=== PATIENT | male | born 1950 | race Caucasian/White ===

== ENCOUNTER 2017-05-28 06:38 | Day surgery (SDC) | payer MEDICARE ==
[~2017-05-28] VITALS: Ht 170.2 cm; Wt 129.1 kg
[2017-05-28] MEDS ORDERED: IOHEXOL 350 MG/ML 100 ML BTL (for Cath Lab) OTHER ONE (06:39)
[2017-05-28 07:23] VITALS: BP 144/77; PULSE 86; RESP 18; TEMP 97.7; O2SAT 96
[2017-05-28 07:28] LABS: AUTOMATED NEUTROPHIL # 4.1 TH/MM3 (1.8-7.7); BASOPHIL # 0.1 TH/MM3 (0-0.2); BASOPHIL % 1.8 % (0.0-2.0); EOSINOPHIL # 0.2 TH/MM3 (0-0.4); EOSINOPHIL % 3.4 % (0.0-4.0); HEMATOCRIT 42.6 % (39.0-51.0); HEMOGLOBIN 14.4 GM/DL (13.0-17.0); LYMPH % 17.6 % (9.0-44.0); LYMPHOCYTE # 1.1 TH/MM3 (1.0-4.8); MEAN CELL VOLUME 87.7 FL (80.0-100.0); MEAN CORPUSCULAR HEMOGLOBIN 29.6 PG (27.0-34.0); MEAN CORPUSCULAR HGB CONC 33.7 % (32.0-36.0); MEAN PLATELET VOLUME 8.9 FL (7.0-11.0); MONOCYTE # 0.6 TH/MM3 (0-0.9); NEUT % 67.2 % (16.0-70.0); PLATELET COUNT 159 TH/MM3 (150-450); RED BLOOD COUNT 4.86 MIL/MM3 (4.50-5.90); RED CELL DISTRIBUTION WIDTH 15.4 % (11.6-17.2)
[2017-05-28] MEDS ORDERED: ATOR40TA16 PO (07:38)
[2017-05-28] MEDS ORDERED: ACET-822 PO (07:38)
[2017-05-28] MEDS ORDERED: ALFU10TA2 PO (07:38)
[2017-05-28] MEDS ORDERED: ECASA81 PO (07:38)
[2017-05-28] MEDS ORDERED: SITA1TAB2 PO (07:38)
[2017-05-28] MEDS ORDERED: ERGO2000 PO (07:38)
[2017-05-28] MEDS ORDERED: PIOG30TA4 PO (07:38)
[2017-05-28] MEDS ORDERED: METO25TA3 PO (07:38)
[2017-05-28] MEDS ORDERED: MAGN400T2 PO (07:38)
[2017-05-28] MEDS ORDERED: LANTUS2P SQ (07:38)
[2017-05-28] MEDS ORDERED: CYCL10TA PO (07:38)
[2017-05-28 07:39] LABS: PROTHROMBIN TIME - PATIENT 10.1 SEC (9.8-11.6)
[2017-05-28 07:52] LABS: BICARBONATE 23.2 MEQ/L (21.0-32.0); CALCIUM 9.2 MG/DL (8.5-10.1); CREATININE 1.8 MG/DL (0.60-1.30)
[2017-05-28] MEDS ORDERED: MIDAZOLAM HCL 2 MG/2 ML VIAL ONE (08:35)
[2017-05-28] MEDS ORDERED: HEPARIN-NS/PF FLUSH BAG 2,000 ML IV FLUSH ONE (08:35)
[2017-05-28] MEDS ORDERED: HEPARIN SODIUM - IV 10,000 UNITS/10 ML VIAL ONE (08:36)
[2017-05-28] MEDS ORDERED: LIDOCAINE HCL 1% PF 30 ML VIAL ONE (08:36)
[2017-05-28] MEDS ORDERED: VERAPAMIL HCL 5 MG/2 ML VIAL ONE (08:36)
[2017-05-28] MEDS ORDERED: NITROGLYCERIN INJ 5 ML ONE (08:36)
--- NOTE | 2017-05-28 10:22 | CATHPROC ---
[facility] HIS Report Study Information Study Number Admission Scheduled Start Study Start [id number] May 28 2017 6:38AM 05/28/2017 May 28 2017 8:23AM [place] [facility] Cardiac Catheterization Admit Source Facility Department Other [facility] - Lead Electrical Engineer Physician and Clinical Staff Initial Marek Wright Sheet Metal Production Worker Ricky Saldaña RN Other cathlab, cathlab Recorder Thien Tapia RCIS(BS) Scrub Stephanie Nathan RT(R) Procedures Performed Procedure Location (Site) Vessel Name Angiogram LV LV Ventricle Coronary Angiograms LCA Left Coronary Coronary Angiograms RCA Right Coronary Coronary Angiograms MEYERS-LAD Left Coronary L Heart Cath Wire insertion Radial (left) Radial Art. Equipment Time Geological Specialist Description Size Mfg Part Number Used/Scraped TRANSDUCER, SJ [id number] 08:26 DE LA ROSA FRIEDMAN * Used W/STOCKCOCK *[id number] *[id number] [id number] *[id number] 10:01 MALLINCKRODT SYRINGE, ANGIOMAT 150ML 150ML *[id number] Used 2SUB [id number] 10:01 MALLINCKRODT SYRINGE, ANGIOMAT 150ML 150ML *[id number] Used 2SUB [id number] 08:26 [employer]gate PACK, CCL CUSTOM * Used *[id number] 08:26 [employer]gate SUPPORT, ARTERIAL ADULT 79877 *[id number] Used [id number] 09:31 MEDTRONIC AL 1 DXTERITY CATHETER FR 5 Used *[id number] 09:43 MEDTRONIC AR MOD DXTERITY CATHETER FR 5 [id number] Used [id number] 08:52 MEDTRONIC JR 4.0 DXTERITY CATHETER FR 5 Used *[id number] BAND, RADIAL COMPRESSION TR [id number] 10:08 K94 [employer] MEDICAL 29CM Used LARGE 29 *[id number] 08:26 K94 [employer] MEDICAL WIRE, EXCHANGE 260CM 3MMJ 260CM Used *[id number] 08:26 NAMIC MANIFOLD, 4 PORT * Used *[id number] 09:51 NAMIC TUBING, HIGH PRESSURE 20" 20" Used *[id number] 08:26 [employer]COMED OMNIPAQUE, 350 MG, 150ML 150ML [id number] Used 09:50 [employer]COMED OMNIPAQUE, 350 MG, 50ML 50ML [id number] Used [id number] 08:26 [facility] BLANKET,WARM AIR CCL * Used *[id number] SHEATH, FR6 TRANSRADIAL RM*[id number] 08:26 [employer] Chitosan FR 6 Used SLENDER 10CM *[id number] Equipment Model, Serial, Lot Number and Expiration Data Description Model Number Serial Number Lot Number Expiration Date AL 1 DXTERITY CATHETER [id number] 05-10-2019 AR MOD DXTERITY CATHETER [id number] 06-21-2019 JR 4.0 DXTERITY CATHETER [id number] 12-02-2019 History: Current Medications Medication Dosage/Unit Route Frequency Last Date/Time Taken ASA Statins (any) 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 History: Allergies Allergy Reaction No Known Allergies History: Risk Factors Family History of Hypertension Dyslipidemia Previous [place] Previous Heart Failure Premature CAD Yes Yes Yes Yes No Prior Valve Prior PCI Prior CABG Prior CABGDate Surgery No No Yes 08/05/2011 Cerebrovascular Peripheral Artery Chronic Lung On Dialysis Diabetes Diabetes Therapy Disease Disease Disease No No No No Yes Insulin History: CV Disease Selection Items Known CAD W[place] History: Stress Tests Stress or Imaging Studies Performed Yes Standard Exercise Stress Test No Stress Echo No Stress Test SPECT No Stress Test CMR Stress Test CMR Result Stress Test CMR Ischemia Risk/Extent Yes Positive Intermediate Cardiac CTA Coronary Calcium Score No No History: W[place]/CV Data Previous CABG Date 08/05/2011 History: Other Current Smoker Method Quit Packs a Day Years Used Pack Years No Cigarettes 30 Years Ago 3 15 45 Labs Hgb (g/dl) Hct (%) WBC (l/cumm) Platelets (thousands) 11.60-17.00 35.00-51.00 4.00-11.00 150.00-450.00 14.4 42.6 6 159 Glucose (mg/dl) BUN (mg/dl) Creatinine (mg/dl) BUN:Creatinine (1:x) 74.00-106.00 7.00-18.00 0.50-1.30 10.00-20.00 196 32 1.8 17.8 Na (meq/l) K (meq/l) Cl (meq/l) CO2 (mmol/L) Ca (mg/dl) 136.00-145.00 3.50-5.10 98.00-107.00 21.00-32.00 8.50-10.10 136 4 103 23.2 9.2 PT (sec) PTT (sec) INR (PTT:PT) 9.80-11.60 24.30-30.10 0.90-1.10 10.1 23.6 1 Medication Medication Total Dose (Bolus/Oral) Medication Total Dosage/Unit 1% XYLOCAINE 4 mL FENTANYL 25 mcg RADIAL COCKTAIL 5 mL (Bolus) VERSED 0.5 mg Medications (Bolus/Oral) Medication Time Given Dosage/Unit Administered By Reason VERSED 05/28/2017 8:58:00 AM 0.5 mg Ricky Saldaña 0.5 mg VERSED given in lab by Ricky Saldaña RN in Left Hand via Peripheral IV. Ordered by Blank Wilson FENTANYL 05/28/2017 8:59:05 AM 25 mcg Ricky Saldaña 25 mcg FENTANYL given in lab by Ricky Saldaña RN in Left Hand via Peripheral IV. Ordered by Marek Wilson. 1% XYLOCAINE 05/28/2017 9:01:01 AM 2 mL Marek Wilson 2 mL 1% XYLOCAINE given in lab by Marek Wilson in Left Radial via Subcutaneous. 1% XYLOCAINE 05/28/2017 9:10:44 AM 2 mL Marek Wilson 2 mL 1% XYLOCAINE given in lab by Marek Wilson in Left Radial via Subcutaneous. Ntg 200mcg Verapamil 2.5mg Heparin RADIAL COCKTAIL 05/28/2017 9:12:59 AM 5 mL (Bolus) Marek Wilson 3000U 5 mL (Bolus) RADIAL COCKTAIL given in lab by Marek Wilson in Left Radial via Radial. Using [So lution Name]. Reason: Ntg 200mcg Verapamil 2.5mg Heparin 5000U. Medication (Drip) Medication Time Given Dosage/Unit Concentration/Unit Diluent (ml) Solution IV Solutions 05/28/2017 8:25:40 AM 0 mL (IV) 500 NaCl .9 IV Solutions given in lab by Ricky Saldaña RN in Left Hand via Peripheral IV. Pump/Drip Flow = 20 ml/ hr using NaCl .9. Ordered by Marek Wilson. Initial Case Assessment Cardiovascular HR Rhythm NIBP Chest Pain 76 nsr 153/76 0 Edema Present Skin color Skin None Normal Warm Dry Circulatory - Right Pulses Dorsalis Pedis Femoral 3 3 Scale (0,1,2,3,4,d) Circulatory - Left Pulses Dorsalis Pedis Femoral 3 3 Scale (0,1,2,3,4,d) Neurological State Oriented to time-place- Alert Moves all extremities person Respiration - General Respiration Rate SpO2 (%) (B/min) 15 97 Final Case Assessment Cardiovascular HR Rhythm NIBP Chest Pain 77 nsr 145/87 0 Edema Present Skin color Skin None Normal Warm Dry Circulatory - Right Pulses Dorsalis Pedis Femoral 3 3 Scale (0,1,2,3,4,d) Circulatory - Left Pulses Dorsalis Pedis Femoral 3 3 Scale (0,1,2,3,4,d) Neurological State Oriented to time-place- Alert Moves all extremities person Respiration - General Respiration Rate SpO2 (%) (B/min) 15 97 Chronological Log Time Study Chronological Log 8:23:16 Patient arrived via Bed. 8:23:17 Patient Name, D.O.B, / Armband Verified By R.N. 8:25:21 Consent signed by the physician and the patient and verified by the Lead Electrical Engineer staff. 8:25:23 Pre-op and post- op instructions given; patient acknowledges understanding of instructions. 8:25:27 Patient has been NPO for More than 6Hrs. 8:25:29 Allens test performed on the left radial and ulnar artery. 8:25:32 Patient has been NPO for More than 6Hrs. 8:25:33 Skin Breakdown- 8:25:34 Patient Warmer Placed on the Table. 8:25:35 Stas Prominences Protected 8:25:39 A # 20 IV was noted in the Hand (left). Grade = 0 IV Solutions given in lab by Ricky Saldaña, RN in Left Hand via Peripheral IV. Pump/Drip Flow = 20 ml/hr using NaCl .9. 8:25:40 Ordered by Marek Wilson 8:25:41 History and physical on the chart or being dictated. Vitals capture started with the following parameters, Patient=Adult, Interval=5 min, Initial Pr klbxit=657 mmHg, 8:28:00 Deflation Rate=5 mmHg, Cuff placed on Left Arm 8:28:40 HR=76 bpm, LTAM=721/76 mmhg, SpO2=97 %, Resp=15 B/min, Pain=0, Sydney=10, Wheeler=2 Assessment: Initial Case, HR=76 BPM, Rhythm=nsr, ISSL=710/76 mmhg, Chest Pain=0, Edema=None, Col or=Normal, Skin = Warm, Dry Right Pulses: Tae Ped=3, Femoral=3 8:31:01 Left Pulses: Tae Ped=3, Femoral=3 Neurological: State=Alert, Ox3, GUTIERREZ Respiration: Resp=15 B/min, SpO2=97 % 8:33:37 HR=83 bpm, JJUK=104/93 mmhg, SpO2=95.0 %, Resp=12 B/min, Pain=0, Sydney=10, Wheeler=2 8:38:38 HR=73 bpm, HYLT=362/82 mmhg, SpO2=95.0 %, Resp=16 B/min, Pain=0, Sydney=10, Wheeler=2 8:40:32 Reference ECG taken 8:42:00 MD arrived. 8:43:35 HR=78 bpm, ZEMH=723/84 mmhg, SpO2=92.0 %, Resp=8 B/min 8:48:39 HR=74 bpm, SZPP=881/77 mmhg, SpO2=93.0 %, Resp=12 B/min, Pain=0, Sydney=10, Wheeler=2 8:52:11 Pressure channel 1 zeroed. 8:53:38 HR=74 bpm, IOSD=571/83 mmhg, SpO2=96 %, Resp=11 B/min, Pain=0, Sydney=10, Wheeler=2 8:54:20 Contrast Scanned 8:54:20 Immediate Presedation assesment performed by physician. 8:58:00 0.5 mg VERSED given in lab by Ricky Saldaña RN in Left Hand via Peripheral IV. Ordered by Marek Santiago 8:58:35 HR=72 bpm, MGRF=021/89 mmhg, SpO2=94.0 %, Resp=10 B/min, Pain=0, Sydney=10, Wheeler=2 8:59:05 25 mcg FENTANYL given in lab by Ricky Saldaña RN in Left Hand via Peripheral IV. Ordered by Marek Wilson Time Out. Correct patient, correct procedure, correct physician, power injector not loaded with contrast with surgical 8:59:10 team present. Time Out Concurred by MD and individual staff in procedure. 9:00:27 Case Start 9:00:28 Verbal Stimulation=2 Physical Stimulation=2 Airway=2 Respiration=2 TOTAL=8. (0=absent, 1=bhatia ited, 2=present) 9:01:01 2 mL 1% XYLOCAINE given in lab by Marek Wilson in Left Radial via Subcutaneous. 9:03:40 HR=71 bpm, FONG=763/86 mmhg, SpO2=91.0 %, Resp=11 B/min, Pain=0, Sydney=10, Wheeler=2 9:08:39 GTMR=816/83 mmhg, SpO2=91.0 % 9:10:44 2 mL 1% XYLOCAINE given in lab by Marek Wilson in Left Radial via Subcutaneous. 9:11:52 Access site was Radial Artery. Left radial access obtained with ultrasound guidance. A SHEATH, FR6 TRANSRADIAL SLENDER 10CM FR 6 was advanced into the Radial (left) using the Percut aneous 9:12:33 technique. 5 mL (Bolus) RADIAL COCKTAIL given in lab by Marek Wilson in Left Radial via Radial. Benja jc [Solution Name]. 9:12:59 Reason: Ntg 200mcg Verapamil 2.5mg Heparin 5000U. 9:14:02 HR=94 bpm, BERZ=584/75 mmhg, SpO2=92.0 %, Resp=13 B/min, Pain=0, Sydney=10, Wheeler=2 A JR 4.0 DXTERITY CATHETER FR 5 was advanced over a wire. OMNIPAQUE, 350 MG, 150ML 150ML was use d for 9:15:31 injections. Recorded Pressure: Ao, HR=78, Condition=Condition 1 9:17:07 (Aorta) Ao 110/66/85 9:18:23 The MEYERS-LAD was injected and visualized at various angles. OMNIPAQUE, 350 MG, 150ML 150ML u sed. 9:18:37 HR=76 bpm, GFMH=442/67 mmhg, SpO2=93.0 %, Resp=14 B/min, Pain=0, Sydney=10, Wheeler=2 9:19:19 A WIRE, EXCHANGE 260CM 3MMJ 260CM was inserted via Radial (left). 9:20:00 Wire removed Recorded Pressure: LV, HR=73, Condition=Condition 1 9:21:10 (Left Ventricle) LV 116/4/15 Recorded Pressure: LV, Ao, HR=71, Condition=Condition 1 9:21:28 (Left Ventricle) LV 118/4/16, (Aorta) Ao 112/64/85 9:22:13 The RCA was injected and visualized at various angles. OMNIPAQUE, 350 MG, 150ML 150ML used. 9:23:36 HR=72 bpm, RJGH=823/78 mmhg, SpO2=94.0 %, Resp=15 B/min, Pain=0, Sydney=10, Wheeler=2 After removing the current catheter a JL 4.0 INFINITI CATHETER FR 5 was advanced over a WIRE, E XCHANGE 260CM 9:26:30 3MMJ 260CM. 9:28:41 HR=71 bpm, PTUZ=509/77 mmhg, SpO2=91.0 %, Resp=15 B/min, Pain=0, Sydney=10, Wheeler=2 9:28:57 The LCA was injected and visualized at various angles. OMNIPAQUE, 350 MG, 150ML 150ML used. After removing the current catheter a AL 1 DXTERITY CATHETER FR 5 was advanced over a WIRE, EXC HANGE 260CM 9:32:02 3MMJ 260CM. 9:33:40 HR=75 bpm, OJNM=176/87 mmhg, SpO2=95.0 %, Resp=16 B/min, Pain=0, Syndey=10, Wheeler=2 9:38:41 HR=74 bpm, HYIM=084/87 mmhg, SpO2=94.0 %, Resp=17 B/min, Pain=0, Sydney=10, Wheeler=2 After removing the current catheter a AR MOD DXTERITY CATHETER FR 5 was advanced over a WIRE, E XCHANGE 9:41:42 260CM 3MMJ 260CM. 9:43:42 HR=76 bpm, RBBG=143/86 mmhg, SpO2=96.0 %, Resp=15 B/min, Pain=0, Sydney=10, Wheeler=2 After removing the current catheter a PIGTAIL STR. INFINITI CATHETER FR 5 was advanced over a W SIXTO, EXCHANGE 9:47:47 260CM 3MMJ 260CM. 9:48:45 HR=70 bpm, DVJC=434/83 mmhg, SpO2=95.0 %, Resp=14 B/min, Pain=0, Sydney=10, Wheeler=2 9:53:42 HR=74 bpm, LHIR=595/91 mmhg, SpO2=95.0 %, Resp=17 B/min, Pain=0, Sydney=10, Wheeler=2 The LV was injected at 12 cc/sec for a total of 36. OMNIPAQUE, 350 MG, 50ML 50ML used. Injector Syringe cracked 9:53:45 during injection. Minimal contrast delivered. 9:58:48 HR=72 bpm, ICKV=214/80 mmhg, SpO2=95.0 %, Resp=10 B/min, Pain=0, Sydney=10, Wheeler=2 10:01:06 The LV was injected at 12 cc/sec for a total of 36. OMNIPAQUE, 350 MG, 50ML 50ML used. After removing the current catheter a AR MOD DXTERITY CATHETER FR 5 was advanced over a WIRE, E XCHANGE 10:02:57 260CM 3MMJ 260CM. 10:03:45 HR=83 bpm, MPIQ=348/87 mmhg, SpO2=96.0 %, Resp=15 B/min, Pain=0, Sydney=10, Wheeler=2 10:07:46 Catheter was removed 10:07:48 Case End Assessment: Final Case, HR=77 BPM, Rhythm=nsr, UZCM=165/87 mmhg, Chest Pain=0, Edema=None, [place] r=Normal, Skin = Warm, Dry Right Pulses: Tae Ped=3, Femoral=3 10:07:53 Left Pulses: Tae Ped=3, Femoral=3 Neurological: State=Alert, Ox3, GUTIERREZ Respiration: Resp=15 B/min, SpO2=97 % 10:08:09 Sterile dressing applied to site 10:08:10 No case complications noted. Radial Compression Device Used. 12 mLs of air placed in BAND, RADIAL COMPRESSION TR LARGE 29 29 CM. Affected 10:08:11 hand 92 % O2 saturation. 10:08:44 HR=79 bpm, MPFQ=539/85 mmhg, SpO2=94.0 %, Resp=14 B/min, Pain=0, Sydney=10, Wheeler=2 10:08:48 No case complications noted. 10:08:48 Cine recording checked. 10:08:50 Bedside Report will be given. 10:08:54 A Left Heart Cath was performed. 10:13:45 HR=74 bpm, ZTIF=618/89 mmhg, SpO2=96.0 %, Resp=11 B/min, Pain=0, Sydney=10, Wheeler=2 10:18:48 Vitals capture stopped. 10:18:54 Systolic Blood Pressure = 118 mmHg (for CathPCI v5) 10:19:02 Arterial Cross Over - No (for CathPCI v5) 10:19:07 PCI for MultiVessel disease - No (for CathPCI v5) 10:20:00 Ventricular Support - No (for CathPCI v5) 10:20:02 Mechanical Ventricular Support - No (for CathPCI v5) 10:20:04 Pharmacologic Vasopressor Support - No (for CathPCI v5) 10:20:12 Severe Calcification - No (for CathPCI v5) 10:20:21 If NOT STEMI or NSTE-ACS, Syntax Score - Unknown (for CathPCI v5) 10:20:[address] [facility] End Study - Contrast Media Used In Study Contrast Total Opened (mL) Total Used (mL) Total Wasted (mL) Omnipaque 100 100 0 End Study - Maximum Contrast Load Max Contrast Load (mL) 358.6 End Study - Radiation Exposure Fluoro Time (minutes) 17.5 End Study - Patient Disposition Complications Transferred To Interventional Outcome No Lead Electrical Engineer Holding No attempt made
[2017-05-28] MEDS ORDERED: SODIUM CHLOR 0.9% 1000 ML INJ 1,000 ML IV SCH (10:23)
[2017-05-28] MEDS ORDERED: MISC INFORMATION XX ONE (10:30)
--- NOTE | 2017-05-28 13:43 | EKG ---
Date Performed: 05/28/2017 Time Performed: 07:40:20 PTAGE: 67 years EKG: Sinus rhythm . Normal ECG NO PREVIOUS TRACING DOCTOR: Teresa Mckenzie Interpretating Date/Time 05/28/2017 13:39:51
--- NOTE | 2017-05-29 09:36 | MA ---
cc: Marek Wilson DO DATE: 05/28/2017 PROCEDURES PERFORMED: Left heart catheterization, coronary angiogram, bypass angiogram, moderate sedation, 60 minutes, ultrasound-guided access, aortic root angiogram. PREPROCEDURE DIAGNOSIS: Abnormal stress test, preoperative cardiovascular exam. POSTPROCEDURE DIAGNOSIS: Coronary artery disease, history of coronary artery bypass graft x 2 (1/2 grafts patent). MEDICATIONS: Versed 0.5 mg, fentanyl 25 mcg, verapamil 2.5 mg, heparin 5000 units, nitroglycerin 200 mcg. CONTRAST USED: 100 mL. FLUOROSCOPY: 17.5 minutes. MODERATE SEDATION: 60 minutes. ESTIMATED BLOOD LOSS: 10 mL. PROCEDURAL SUMMARY: Lawrence Sandoval is a pleasant 67-year-old male who sees my partner, Dr. Hairston, in the office and is planning to undergo bariatric surgery. He underwent previous stress test around a year ago, which showed lateral ischemia. He was recommended cardiac catheterization before undergoing surgery. Risks, benefits and alternatives were explained to him and he consented as such. He was brought to the lab and prepped in the usual sterile fashion. Left radial artery was accessed using a modified Seldinger technique with ultrasound guidance and placement of a 5/6 Armenian slender sheath. This was easily aspirated and flushed. A JR4 was advanced over a J-wire to the left subclavian and used for selective angiography of the MEYERS to LAD. JR4 was then advanced across the aortic valve for measurement of left ventricular pressures. This was pulled back across the aortic valve, showing no significant gradient of aortic stenosis. This was exchanged out for a JL4, which was used for selective angiography of the left coronary artery system. I then attempted to find his saphenous vein graft to the obtuse marginal with a JR4, AL1 and AR , but was unable to. A pigtail was placed in the aortic root and aortic root angiogram was performed. Pigtail was then removed. Radial band was placed over the arteriotomy site for hemostasis. The patient left the high density press laborer cardiovascularly stable. FINDINGS: Left main normal size vessel with adequate reflux and 20% distal disease. It trifurcates into an LAD, ramus and circumflex. LAD normal size vessel with 90% disease distally, with competitive flow. It gives off one diagonal. Ramus overall small vessel, with diffuse 30% disease. Left circumflex normal size vessel with 30% disease in the mid portion. The first obtuse marginal appears to be occluded and there appears to be some rkje-ue-rhiw collaterals which fills the minimal distal portion of this. RCA nondominant, overall small vessel with diffuse 90% disease. MEYERS to LAD, patent. Distal to the anastomosis, there appears to be a 90% lesion. Saphenous vein graft to obtuse marginal occluded. LVEDP 16. IMPRESSION: 1. Preoperative cardiovascular exam. 2. Abnormal stress test. 3. Coronary artery disease with a history of coronary artery bypass graft x 2 (1/2 grafts patent). RECOMMENDATIONS: 1. Mr. Sandoval previously had lateral ischemia and this may be due to his saphenous vein graft occluding to an already occluded obtuse marginal. This will be treated medically. 2. He now has significant disease in his distal LAD after the touchdown of the MEYERS and I feel that this should be intervened on before going to surgery. 3. He does have chronic kidney disease and so this will be staged and planned for next week. 4. He will have to put off his surgery for 6-12 months and he understands this, as I plan on placing drug-eluting stent. 5. Be treated with IV fluids and discharged later today. Thank you for allowing me to see Lawrence Sandoval. If there are any questions, please do not hesitate to call. DO GIFTY Wagner/SHEREE , 11:46 PM , 12:16 AM
== END 2017-05-28 14:50 | disposition home or self-care (01) ==
LOC: HDOC 06:38 → HDIC 06:39 → HDOC 14:50
PROVIDERS: ATTEND Nuclear Medicine Nuclear Cardiology
DX: I25.10 Atherosclerotic heart disease of native coronary artery without angina pectoris (principal); I11.9 Hypertensive heart disease without heart failure; I71.4 Abdominal aortic aneurysm, without rupture; E78.5 Hyperlipidemia, unspecified; E66.9 Obesity, unspecified; Z95.1 Presence of aortocoronary bypass graft; Z68.41 Body mass index [BMI] 40.0-44.9, adult
CPT/HCPCS: 80048; 85025; 85610; 85730; 93005; 93458; 93567; 99152; 99153; C1769; C1893; J1644; J2250; J3010; J7030; Q9967

== ENCOUNTER 2017-06-04 06:33 | Day surgery (SDC) | payer MEDICARE ==
[2017-06-04] VITALS (7 sets, daily range): BP systolic 103–167; BP diastolic 54–75; PULSE 63–94; RESP 16–20; TEMP 97.5–98.3; O2SAT 95–100
[~2017-06-04] VITALS: Ht 170.2 cm; Wt 128.4 kg
[~2017-06-04 06:33] MED LIST: ACET-822 PO; ALFU10TA2 PO; ATOR40TA16 PO; CYCL10TA PO; ECASA81 PO; ERGO2000 PO; LANTUS2P SQ; MAGN400T2 PO; METO25TA3 PO; PIOG30TA4 PO; SITA1TAB2 PO
[2017-06-04] MEDS ORDERED: IOHEXOL 350 MG/ML 50 ML BTL (for Cath Lab) OTHER ONE (06:34)
[2017-06-04] MEDS ORDERED: IOHEXOL 350 MG/ML 100 ML BTL (for Cath Lab) OTHER ONE (06:34)
[2017-06-04 07:23] LABS: AUTOMATED NEUTROPHIL # 4.2 TH/MM3 (1.8-7.7); BASOPHIL # 0.1 TH/MM3 (0-0.2); BASOPHIL % 1.3 % (0.0-2.0); EOSINOPHIL # 0.2 TH/MM3 (0-0.4); EOSINOPHIL % 3.8 % (0.0-4.0); HEMATOCRIT 42.7 % (39.0-51.0); HEMOGLOBIN 14.3 GM/DL (13.0-17.0); LYMPH % 16.3 % (9.0-44.0); MEAN CELL VOLUME 87.6 FL (80.0-100.0); MEAN CORPUSCULAR HEMOGLOBIN 29.4 PG (27.0-34.0); MEAN CORPUSCULAR HGB CONC 33.6 % (32.0-36.0); MEAN PLATELET VOLUME 9.1 FL (7.0-11.0); MONOCYTE # 0.7 TH/MM3 (0-0.9); NEUT % 67.6 % (16.0-70.0); PLATELET COUNT 156 TH/MM3 (150-450); RED BLOOD COUNT 4.88 MIL/MM3 (4.50-5.90); RED CELL DISTRIBUTION WIDTH 15.2 % (11.6-17.2); WHITE BLOOD COUNT 6.2 TH/MM3 (4.0-11.0)
[2017-06-04 07:54] LABS: BICARBONATE 22.6 MEQ/L (21.0-32.0); CALCIUM 10.5 MG/DL (8.5-10.1); CREATININE 1.68 MG/DL (0.60-1.30)
[2017-06-04] MEDS ORDERED: VERAPAMIL HCL 5 MG/2 ML VIAL ONE (08:36)
[2017-06-04] MEDS ORDERED: NITROGLYCERIN INJ 5 ML ONE (08:36)
[2017-06-04] MEDS ORDERED: HEPARIN SODIUM - IV 10,000 UNITS/10 ML VIAL ONE (08:36)
[2017-06-04] MEDS ORDERED: MIDAZOLAM HCL 2 MG/2 ML VIAL ONE (08:40)
[2017-06-04] MEDS: SODIUM CHLOR 0.9% 1000 ML INJ 1,000 ML IV SCH (09:00)
[2017-06-04] MEDS ORDERED: HEPARIN-NS/PF FLUSH BAG 3,000 ML IV FLUSH ONE (09:46)
[2017-06-04] MEDS ORDERED: TICAGRELOR 90 MG TAB PO ONE (10:44)
[2017-06-04] MEDS ORDERED: SODIUM CHLOR 0.9% 1000 ML INJ 1,000 ML IV SCH (12:05)
--- NOTE | 2017-06-04 12:07 | CATHPROC ---
[facility] HIS Report Study Information Study Number Admission Scheduled Start Study Start [id number] Jun 04 2017 6:33AM 06/04/2017 Jun 04 2017 8:29AM [facility] [facility] C[facility]ter[facility] Admit Source Facility Department Other [facility] - [facility] Physician and Clinical Staff Initial Marek Wright Seat NailerCherry Tam RN Seat Nailerann-marie Braxton RN, Huan Cardoza cathlab, cathlab Recorder Thien Tapia RCIS(BS) Scrub Allie KirkRT(R) Procedures Performed Procedure Location (Site) Vessel Name Coronary Angiograms MEYERS-LAD Left Coronary Drug Eluting Inflatio MEYERS-LAD Left Coronary L Heart Cath PTCA MEYERS-LAD Left Coronary PTCA LAD Mid Left Coronary Wire insertion Radial (left) Radial Art. Equipment Time Bread Panner Description Size Mfg Part Number Used/Scraped [id number] 09:35 [employer] WIRE, ASAHI GRANDSLAM 300CM 300CM Used *[id number] WIRE, BALANCE MIDDLEWEIGHT [id number] 08:54 [employer] 300CM Used 300CM *[id number] TRANSDUCER, TRUWAVE [id number] 08:31 DE [employer] FRIEDMAN * Used W/STOCKCOCK *[id number] *[id number] 08:31 K[employer] PACK, CCL CUSTOM * Used *[id number] 08:31 [employer] SUPPORT, ARTERIAL ADULT [id number] *[id number] Used BALLOON, 1.25 X 6MM SPRINTER [id number] 09:35 [employer] 6MM Used LEGEND OTW *[id number] 09:18 [employer] BALLOON, 2.0 X 6MM EUPHORA 6MM Used *[id number] BALLOON, 2.0 X 6MM NC [id number] 10:47 MEDTR[employer] 6MM Used EUPHORA *[id number] BALLOON, 3.0 X 27MM NC [id number] 10:29 MED[employer] 27MM Used EUPHORA *[id number] BALLOON, 3.5 X 15MM NC [id number] 11:28 MEDTR[employer]IC 15MM Used EUPHORA *[id number] BALLOON, 4.0 X 12MM NC [id number] 11:38 MED[employer]IC 12MM Used EUPHORA *[id number] [id number] 09:28 [employer] STENT, 2.0 12MM HARRY 2.0 X 12MM Used *[id number] 09:53 [employer] STENT, 3.0 26MM HARRY 3.0 26MM Used *[id number] 10:08 [employer]IC STENT, 3.0 26MM HARRY 3.0 26MM Used *[id number] 10:15 [employer]TR[employer] STENT, 3.0 26MM HARRY 3.0 26MM Used *[id number] 09:58 [employer] STENT, 3.0 38MM HARRY 3.0 38MM [id number] Used 10:05 [employer] STENT, 3.0 38MM HARRY 3.0 38MM [id number] Used 09:48 [employer] STENT, 3.5 26MM HARRY 3.5 26MM [id number] Used [id number] 08:41 [employer] 30 JULISA INDEFLATOR Used *[id number] BAND, RADIAL COMPRESSION TR [id number] 11:46 [employer] 29CM Used LARGE 29 *[id number] 08:31 [employer] WIRE, EXCHANGE 260CM 3MMJ 260CM Used *[id number] PROBE COVER, STERILE [id number] 09:11 [employer] * Used ULTRASOUND W/ GEL *[id number] 08:31 NAMIC MANIFOLD, 4 PORT * Used *[id number] 08:31 NYCOMED OMNIPAQUE, 350 MG, 150ML 150ML [id number] Used [id number] 08:31 [employer] BLANKET,WARM AIR CCL * Used *[id number] SHEATH, FR6 TRANSRADIAL [id number] 08:31 [employer] FR 6 Used SLENDER 10CM *[id number] WIRE, RUNTHROUGH NS FLOPPY [id number] 11:14 [employer] 300CM Used .014 300CM *[id number] 10:20 VASCULAR [employer] CATHETER, FR6 GUIDELINER FR 6 9579 *[id number] Used Equipment Model, Serial, Lot Number and Expiration Data Description Model Number Serial Number Lot Number Expiration Date BALLOON, 2.0 X 6MM NC EUPHORA [id number] 03-06-2018 BALLOON, 3.0 X 27MM NC [id number] 10-15-2017 EUPHORA BALLOON, 4.0 X 12MM NC [id number] 11-21-2018 EUPHORA STENT, 2.0 12MM HARRY [id number] 02-26-2019 STENT, 3.0 26MM HARRY [id number] 08-25-2018 STENT, 3.0 26MM HARRY [id number] 03-13-2019 STENT, 3.0 26MM HARRY [id number] 02-03-2019 STENT, 3.0 38MM HARRY [id number] 10-21-2018 STENT, 3.0 38MM HARRY [id number] 10-21-2018 STENT, 3.5 26MM HARRY [id number] 12-01-2018 History: Current Medications Medication Dosage/Unit Route Frequency Last Date/Time Taken ASA Statins (any) 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 History: Allergies Allergy Reaction No Known Allergies History: Risk Factors Family History of Hypertension Dyslipidemia Previous [place] Previous Heart Failure Premature CAD Yes Yes Yes Yes No Prior Valve Prior PCI Prior CABG Prior CABGDate Surgery No No Yes 05/28/2017 Cerebrovascular Peripheral Artery Chronic Lung On Dialysis Diabetes Diabetes Therapy Disease Disease Disease No No No No Yes Insulin History: CV Disease Selection Items Known CAD [place] History: Stress Tests Stress or Imaging Studies Performed Yes Standard Exercise Stress Test No Stress Echo No Stress Test SPECT No Stress Test CMR Stress Test CMR Result Stress Test CMR Ischemia Risk/Extent Yes Positive Intermediate Cardiac CTA Coronary Calcium Score No No History: [place]/CV Data Previous CABG Date 05/28/2017 History: Other Current Smoker Method Quit Packs a Day Years Used Pack Years No Cigarettes 30 Years Ago 3 15 45 Labs Hgb (g/dl) Hct (%) WBC (l/cumm) Platelets (thousands) 11.60-17.00 35.00-51.00 4.00-11.00 150.00-450.00 14.3 42.7 6.2 156 Glucose (mg/dl) BUN (mg/dl) Creatinine (mg/dl) BUN:Creatinine (1:x) 74.00-106.00 7.00-18.00 0.50-1.30 10.00-20.00 203 26 1.6 16.3 Na (meq/l) K (meq/l) 136.00-145.00 3.50-5.10 134 4.1 INR (PTT:PT) 0.90-1.10 1 CPK-MB (ng/ML) 0.50-3.60 Not Drawn Medication Medication Total Dose (Bolus/Oral) Medication Total Dosage/Unit 1% XYLOCAINE 2 mL BRILLINTA 180 mg FENTANYL 75 mcg HEPARIN 8800 units NTG (IC) 600 mcg RADIAL COCKTAIL 5 mL (Bolus) VERSED 1 mg Medications (Bolus/Oral) Medication Time Given Dosage/Unit Administered By Reason VERSED 06/04/2017 9:04:14 AM 0.5 mg Cherry Rutledge 0.5 mg VERSED given in lab by Cherry Rutledge RN in Left Wrist via Peripheral IV. Ordered by Marek Barrera FENTANYL 06/04/2017 9:04:21 AM 25 mcg Cherry Rutledge 25 mcg FENTANYL given in lab by Cherry Rutledge RN in Left Wrist via Peripheral IV. Ordered by Marek Chavez 1% XYLOCAINE 06/04/2017 9:04:44 AM 2 mL Marek Wilson 2 mL 1% XYLOCAINE given in lab by Marek Wilson in Left Radial via Subcutaneous. Ntg 200mcg Verapamil 2.5mg Heparin RADIAL COCKTAIL 06/04/2017 9:10:57 AM 5 mL (Bolus) Marek Wilson 3000U 5 mL (Bolus) RADIAL COCKTAIL given in lab by Marek Wilson in Left Radial via Radial. Using [So lution Name]. Reason: Ntg 200mcg Verapamil 2.5mg Heparin 5000U. HEPARIN 06/04/2017 9:17:29 AM 7800 units Cherry Rutledge 7800 units HEPARIN given in lab by Cherry Rutledge RN in Left Wrist via Peripheral IV. Ordered by Marek Santiago. NTG (IC) 06/04/2017 9:39:00 AM 200 mcg Marek Wilson 200 mcg NTG (IC) given in lab by Marek Wilson via Intra-coronary. FENTANYL 06/04/2017 10:02:11 AM 25 mcg Cherry Rutledge 25 mcg FENTANYL given in lab by Cherry Rutledge RN in Left Wrist via Peripheral IV. Ordered by Marek Chavez. HEPARIN 06/04/2017 10:23:14 AM 1000 units Marek Wilson 1000 units HEPARIN given in lab by Marek Wilson in Left Wrist via Peripheral IV. Ordered by Marek Santiago VERSED 06/04/2017 10:33:22 AM 0.5 mg Cherry Rutledge 0.5 mg VERSED given in lab by Cherry Rutledge RN in Left Wrist via Peripheral IV. Ordered by Marek Barrera FENTANYL 06/04/2017 10:33:25 AM 25 mcg Cherry Rutledge 25 mcg FENTANYL given in lab by Cherry Rutledge RN in Left Wrist via Peripheral IV. Ordered by Marek Chavez NTG (IC) 06/04/2017 11:05:08 AM 200 mcg Marek Wilson 200 mcg NTG (IC) given in lab by Marek Wilson via Intra-coronary. NTG (IC) 06/04/2017 11:34:21 AM 200 mcg Marek Wilson 200 mcg NTG (IC) given in lab by Marek Wilson via Intra-coronary. BRILLINTA 06/04/2017 11:46:53 AM 180 mg Cherry Rutledge 180 mg BRILLINTA given in lab by Cherry Rutledge RN in Per mouth via Oral. Ordered by Melody Wilson Medication (Drip) Medication Time Given Dosage/Unit Concentration/Unit Diluent (ml) Solution IV Solutions 06/04/2017 8:29:30 AM 0 mL (IV) 500 NaCl .9 Patient arrived on IV Solutions given by jose garcia in Left Wrist via Peripheral IV. Pump/Drip Flow = 100 ml/hr using NaCl .9. Ordered by Marek Wilson Initial Case Assessment Cardiovascular HR Rhythm NIBP Chest Pain 90 nsr 149/78 0 Edema Present Skin color Skin None Normal Warm Dry Neurological State Oriented to time-place- Alert Moves all extremities person Respiration - General Respiration Rate SpO2 (%) (B/min) 15 99 Final Case Assessment Cardiovascular HR Rhythm Chest Pain 68 Sinus 0 Edema Present Skin color Skin None Normal Warm Dry Circulatory - Right Pulses Dorsalis Pedis Femoral Radial 1 1 2 Scale (0,1,2,3,4,d) Scale (0,1,2,3,4,d) Neurological State Oriented to time-place- Alert Moves all extremities person Respiration - General Respiration Rate SpO2 (%) O2 (lpm) (B/min) 8 99 0 Chronological Log Time Study Chronological Log 8:29:04 Patient arrived via Bed. 8:29:05 Patient Name, D.O.B, / Armband Verified By R.N. 8:29:05 Consent signed by the physician and the patient and verified by the [facility] staff. 8:29:06 Pre-op and post- op instructions given; patient acknowledges understanding of instructions . 8:29:07 Verbal Stimulation=2 Physical Stimulation=2 Airway=2 Respiration=2 TOTAL=8. (0=absent, 1=l imited, 2=present) 8:29:09 Presedation assessment performed by [facility]er RN. 8:29:16 Allens test performed on the left radial and ulnar artery. 8:29:20 Patient has been NPO for More than 6Hrs. 8:29:24 Skin Breakdown- none per patient 8:29:26 Patient Warmer Placed on the Table. 8:29:28 Stas Prominences Protected 8:29:29 A # 20 IV was noted in the Wrist (left). Grade = 0 Patient arrived on IV Solutions given by cathlab, cathlab in Left Wrist via Peripheral IV. Pump/ Drip Flow = 100 ml/hr 8:29:30 using NaCl .9. Ordered by Marek Wilson 8:29:31 History and physical on the chart or being dictated. Assessment: Initial Case, HR=90 BPM, Rhythm=nsr, ASQO=174/78 mmhg, Chest Pain=0, Edema=None, Col or=Normal, Skin = Warm, Dry 8:29:32 Neurological: State=Alert, Ox3, GUTIERREZ Respiration: Resp=15 B/min, SpO2=99 % Vitals capture started with the following parameters, Patient=Adult, Interval=5 min, Initial Pre smcxr=876 mmHg, 8:35:28 Deflation Rate=5 mmHg, Cuff placed on Unknown 8:35:52 Reference ECG taken 8:36:12 HR=78 bpm, BFPE=044/78 mmhg, SpO2=97.0 %, Resp=17 B/min, Pain=0, Sydney=10, Wheeler=2 8:41:52 HR=66 bpm, IZEZ=863/72 mmhg, SpO2=95.0 %, Resp=21 B/min 8:42:48 Left radial and groin(s) prepped with 2% chlorhexidine, and draped after a 3 min. waiting ti me. 8:46:12 FQNG=351/80 mmhg, SpO2=97.0 %, Resp=15 B/min, Pain=0, Sydney=10, Wheeler=2 8:50:22 MD arrived. 8:50:24 Contrast Scanned 8:50:25 Immediate Presedation assesment performed by physician. 8:51:13 HR=73 bpm, ZVKW=619/79 mmhg, SpO2=96.0 %, Resp=15 B/min, Pain=0, Sydney=10, Wheeler=2 8:52:04 Pressure channel 1 zeroed. 8:56:53 HR=66 bpm, WJKZ=315/71 mmhg, SpO2=96.0 %, Resp=18 B/min, Pain=0, Sydney=10, Wheeler=2 9:01:50 HR=64 bpm, QPBL=287/76 mmhg, SpO2=97.0 %, Resp=8 B/min, Pain=0, Sydney=10, Wheeler=2 Time Out. Correct patient, correct procedure, correct physician, power injector not loaded with contrast with surgical 9:04:04 team present. Time Out Concurred by MD and individual staff in procedure. 9:04:12 Case Start 9:04:14 0.5 mg VERSED given in lab by Cherry Rutledge, JORGITO in Left Wrist via Peripheral IV. Ordered b Marek Le. 9:04:21 25 mcg FENTANYL given in lab by Cherry Rutledge, JORGITO in Left Wrist via Peripheral IV. Ordered by Marek Wilson. 9:04:28 Verbal Stimulation=2 Physical Stimulation=2 Airway=2 Respiration=2 TOTAL=8. (0=absent, 1=bhatia ited, 2=present) 9:04:44 2 mL 1% XYLOCAINE given in lab by Marek Wilson in Left Radial via Subcutaneous. 9:06:49 HR=74 bpm, KBLF=313/69 mmhg, SpO2=96.0 %, Resp=9 B/min, Pain=0, Sydney=10, Wheeler=2 9:10:14 Access site was Left Radial Artery using ultrasound guidance A SHEATH, FR6 TRANSRADIAL SLENDER 10CM FR 6 was advanced into the Radial (left) using the Percut aneamanda 9:10:49 technique. 5 mL (Bolus) RADIAL COCKTAIL given in lab by Marek Wilson in Left Radial via Radial. Benja jc [Solution Name]. 9:10:57 Reason: Ntg 200mcg Verapamil 2.5mg Heparin 5000U. 9:11:24 HR=72 bpm, JSOD=844/40 mmhg, SpO2=97.0 %, Resp=12 B/min, Pain=0, Sydney=10, Wheeler=2 9:12:14 A MEGAN GUIDE CATHETER FR 6 was advanced over a wire. OMNIPAQUE, 350 MG, 150ML 150ML was used for injections. Recorded Pressure: Ao, HR=80, Condition=Condition 1 9:13:54 (Aorta) Ao 95/59/74 9:14:46 The MEYERS-LAD was injected and visualized at various angles. OMNIPAQUE, 350 MG, 150ML 150ML u sed. 9:16:17 HR=69 bpm, OHBT=511/62 mmhg, SpO2=92.0 %, Resp=12 B/min, Pain=0, Sydney=10, Wheeler=2 9:16:34 A WIRE, BALANCE MIDDLEWEIGHT 300CM 300CM was inserted via Radial (left). 9:17:29 7800 units HEPARIN given in lab by Cherry Rutledge RN in Left Wrist via Peripheral IV. Orde red by Marek Wilson. 9:19:40 Interventional wire has crossed the lesion 9:21:16 HR=66 bpm, ITFH=278/61 mmhg, SpO2=94.0 %, Resp=13 B/min, Pain=0, Sydney=10, Wheeler=2 9:23:03 Activated Clotting Time Drawn A BALLOON, 2.0 X 6MM EUPHORA 6MM was inserted over WIRE, BALANCE MIDDLEWEIGHT 300CM 300CM via t he LAD 9:24:27 Mid. A BALLOON, 2.0 X 6MM EUPHORA 6MM over a WIRE, BALANCE MIDDLEWEIGHT 300CM 300CM in the LAD Mid w as 9:26:13 inflated using a 30 JULISA INDEFLATOR at 8 julisa for 22 sec. 9:26:45 HR=67 bpm, BMUO=633/65 mmhg, SpO2=96.0 %, Resp=15 B/min, Pain=0, Sydney=10, Wheeler=2 9:27:40 Balloon Removed. A STENT, 2.0 12MM HARRY 2.0 X 12MM was advanced through a MEGAN GUIDE CATHETER FR 6 over a WIRE, B ALANCE 9:29:06 MIDDLEWEIGHT 300CM 300CM. 9:31:46 HR=66 bpm, WKLH=856/72 mmhg, SpO2=97.0 %, Resp=11 B/min, Pain=0, Sydney=10, Wheeler=2 9:33:32 Stent not deployed. Stent removed and intact. A BALLOON, 1.25 X 6MM SPRINTER LEGEND OTW 6MM was inserted over WIRE, BALANCE MIDDLEWEIGHT 300C M 9:34:41 300CM via the Radial (left). 9:36:50 HR=69 bpm, YQHC=161/75 mmhg, SpO2=95.0 %, Resp=17 B/min, Pain=0, Sydney=10, Wheeler=2 9:38:18 The previous wire was exchanged for a WIRE, ASAAudible Magic GRANDSLAM 300CM 300CM. 9:38:28 Balloon Removed. 9:39:00 200 mcg NTG (IC) given in lab by Marek Wilson via Intra-coronary. 9:40:00 MEYERS dissected. 9:41:16 HR=72 bpm, PHHQ=778/76 mmhg, SpO2=96.0 %, Resp=15 B/min, Pain=0, Sydney=10, Wheeler=2 9:41:42 ACT (Normal Range 90-180) = 342 9:46:15 HR=64 bpm, DCMI=175/69 mmhg, SpO2=95.0 %, Resp=20 B/min, Pain=0, Sydney=10, Wheeler=2 A STENT, 3.5 26MM HARRY 3.5 26MM was advanced through a MEGAN GUIDE CATHETER FR 6 over a WIRE, ASA HI 9:49:08 GRANDSLAM 300CM 300CM. A STENT, 3.5 26MM HARRY 3.5 26MM was deployed using a 30 JULISA INDEFLATOR at 12 atmospheres for 25 seconds in 9:49:16 the MEYERS-LAD. 9:50:09 Delivery device removed 9:51:16 HR=64 bpm, RCCE=120/72 mmhg, SpO2=96.0 %, Resp=15 B/min, Pain=0, Sydney=10, Wheeler=2 A STENT, 3.0 26MM HARRY 3.0 26MM was advanced through a MEGAN GUIDE CATHETER FR 6 over a WIRE, ASA HI 9:52:12 GRANDSLAM 300CM 300CM. A STENT, 3.0 26MM HARRY 3.0 26MM was deployed using a 30 JULISA INDEFLATOR at 14 atmospheres for 30 seconds in 9:53:49 the MEYERS-LAD. 9:54:26 Re-inflated the stent balloon in the MEYERS-LAD to 14 JULISA for 18 seconds. 9:54:40 Delivery device removed 9:56:17 HR=64 bpm, BZTZ=151/73 mmhg, SpO2=98.0 %, Resp=14 B/min, Pain=0, Sydney=10, Wheeler=2 A STENT, 3.0 38MM HARRY 3.0 38MM was advanced through a MEGAN GUIDE CATHETER FR 6 over a WIRE, ASA HI 9:57:39 GRANDSLAM 300CM 300CM. A STENT, 3.0 38MM HARRY 3.0 38MM was deployed using a 30 JULISA INDEFLATOR at 12 atmospheres for 22 seconds in 9:59:02 the MEYERS-LAD. 10:00:27 Delivery device removed 10:01:20 HR=67 bpm, KIWX=157/71 mmhg, SpO2=97.0 %, Resp=13 B/min, Pain=0, Sydney=10, Wheeler=2 10:02:11 25 mcg FENTANYL given in lab by Cherry Rutledge, JORGITO in Left Wrist via Peripheral IV. Ordere d by Marek Wilson A STENT, 3.0 38MM HARRY 3.0 38MM was advanced through a MEGAN GUIDE CATHETER FR 6 over a WIRE, ASA HI 10:02:30 GRANDSLAM 300CM 300CM. A STENT, 3.0 38MM HARRY 3.0 38MM was deployed using a 30 JULISA INDEFLATOR at 12 atmospheres for 30 seconds in 10:04:26 the MEYERS-LAD. 10:05:17 Re-inflated the stent balloon in the MEYERS-LAD to 12 JULISA for 30 seconds. 10:05:53 Delivery device removed 10:06:19 HR=64 bpm, SNCW=726/70 mmhg, SpO2=96.0 %, Resp=8 B/min, Pain=0, Sydney=10, Wheeler=2 A STENT, 3.0 26MM HARRY 3.0 26MM was advanced through a MEGAN GUIDE CATHETER FR 6 over a WIRE, ASA HI 10:07:39 GRANDSLAM 300CM 300CM. 10:09:02 Activated Clotting Time Drawn A STENT, 3.0 26MM HARRY 3.0 26MM was deployed using a 30 JULISA INDEFLATOR at 12 atmospheres for 20 seconds in 10:11:03 the MEYERS-LAD. 10:11:45 Re-inflated the stent balloon in the MEYERS-LAD to 14 JULISA for 15 seconds. 10:11:57 HR=62 bpm, VZAP=477/74 mmhg, SpO2=96.0 %, Resp=11 B/min, Pain=0, Sydney=10, Wheeler=2 10:13:39 Delivery device removed A STENT, 3.0 26MM HARRY 3.0 26MM was advanced through a MEGAN GUIDE CATHETER FR 6 over a WIRE, ASA HI 10:13:45 GRANDSLAM 300CM 300CM. A STENT, 3.0 26MM HARRY 3.0 26MM was deployed using a 30 JULISA INDEFLATOR at 12 atmospheres for 20 seconds in 10:15:33 the MEYERS-LAD. 10:16:17 Re-inflated the stent balloon in the MEYERS-LAD to 14 JULISA for 10 seconds. 10:16:34 Re-inflated the stent balloon in the MEYERS-LAD to 14 JULISA for 10 seconds. 10:16:56 HR=65 bpm, HHKT=841/74 mmhg, SpO2=96.0 %, Resp=12 B/min, Pain=0, Sydney=10, Wheeler=2 10:17:05 Delivery device removed 10:21:18 HR=69 bpm, BFUA=403/76 mmhg, SpO2=95.0 %, Resp=10 B/min, Pain=0, Sydney=10, Wheeler=2 A CATHETER, FR6 GUIDELINER FR 6 was advanced over a wire. OMNIPAQUE, 350 MG, 150ML 150ML was us ed for 10:21:32 injections. A STENT, 2.0 12MM HARRY 2.0 X 12MM was advanced through a MEGAN GUIDE CATHETER FR 6 over a WIRE, A MARILYN 10:22:51 GRANDSLAM 300CM 300CM. 10:23:14 1000 units HEPARIN given in lab by Marek Wilson in Left Wrist via Peripheral IV. Ord ered by Marek Wilson. 10:26:21 HR=63 bpm, ZANJ=997/78 mmhg, SpO2=96.0 %, Resp=16 B/min, Pain=0, Sydney=10, Wheeler=2 10:27:18 Stent not deployed. Stent removed and intact. A BALLOON, 3.0 X 27MM NC EUPHORA 27MM was inserted over WIRE, ASAHI GRANDSLAM 300CM 300CM via t he 10:28:35 MEYERS-LAD. 10:31:20 HR=66 bpm, BHOA=657/83 mmhg, SpO2=97.0 %, Resp=10 B/min, Pain=0, Sydney=10, Wheeler=2 A BALLOON, 3.0 X 27MM NC EUPHORA 27MM over a WIRE, ASAHI GRANDSLAM 300CM 300CM in the MEYERS-LAD was 10:32:13 inflated using a 30 JULISA INDEFLATOR at 18 julisa for 30 sec. A BALLOON, 3.0 X 27MM NC EUPHORA 27MM over a WIRE, ASAHI GRANDSLAM 300CM 300CM in the MEYERS-LAD was 10:33:16 inflated using a 30 JULISA INDEFLATOR at 18 julisa for 30 sec. 10:33:22 0.5 mg VERSED given in lab by Cherry Rutledge, JORGITO in Left Wrist via Peripheral IV. Ordered by Marek Wilson 10:33:25 25 mcg FENTANYL given in lab by Cherry Rutledge RN in Left Wrist via Peripheral IV. Ordere d by Marek Wilson. A BALLOON, 3.0 X 27MM NC EUPHORA 27MM over a WIRE, ASAHI GRANDSLAM 300CM 300CM in the MEYERS-LAD was 10:33:32 inflated using a 30 JULISA INDEFLATOR at 18 julisa for 22 sec. A BALLOON, 3.0 X 27MM NC EUPHORA 27MM over a WIRE, ASAHI GRANDSLAM 300CM 300CM in the MEYERS-LAD was 10:34:18 inflated using a 30 JULISA INDEFLATOR at 16 julisa for 24 sec. A BALLOON, 3.0 X 27MM NC EUPHORA 27MM over a WIRE, ASAHI GRANDSLAM 300CM 300CM in the MEYERS-LAD was 10:35:26 inflated using a 30 JULISA INDEFLATOR at 14 julisa for 14 sec. A BALLOON, 3.0 X 27MM NC EUPHORA 27MM over a WIRE, ASAHI GRANDSLAM 300CM 300CM in the MEYERS-LAD was 10:35:52 inflated using a 30 JULISA INDEFLATOR at 16 julisa for 24 sec. A BALLOON, 3.0 X 27MM NC EUPHORA 27MM over a WIRE, ASAHI GRANDSLAM 300CM 300CM in the MEYERS-LAD was 10:36:36 inflated using a 30 JULISA INDEFLATOR at 16 julisa for 14 sec. 10:36:52 HR=72 bpm, QCUC=991/77 mmhg, SpO2=95.0 %, Resp=12 B/min, Pain=0, Sydeny=10, Wheeler=2 A BALLOON, 3.0 X 27MM NC EUPHORA 27MM over a WIRE, ASAHI GRANDSLAM 300CM 300CM in the MEYERS-LAD was 10:37:19 inflated using a 30 JULISA INDEFLATOR at 16 julisa for 16 sec. A BALLOON, 3.0 X 27MM NC EUPHORA 27MM over a WIRE, ASAHI GRANDSLAM 300CM 300CM in the MEYERS-LAD was 10:38:05 inflated using a 30 JULISA INDEFLATOR at 16 julisa for 30 sec. 10:39:41 Balloon Removed. A STENT, 2.0 12MM HARRY 2.0 X 12MM was advanced through a MEGAN GUIDE CATHETER FR 6 over a WIRE, A MARILYN 10:39:47 GRANDSLAM 300CM 300CM. 10:41:23 HR=70 bpm, URSX=098/74 mmhg, SpO2=96.0 %, Resp=14 B/min, Pain=0, Sydney=10, Wheeler=2 10:45:09 Stent not deployed. Stent removed and intact. 10:46:20 HR=67 bpm, NQJG=019/79 mmhg, SpO2=96.0 %, Resp=9 B/min, Pain=0, Sydney=10, Wheeler=2 A BALLOON, 2.0 X 6MM NC EUPHORA 6MM was inserted over WIRE, ASAHI GRANDSLAM 300CM 300CM via the Radial 10:47:40 (left). A BALLOON, 2.0 X 6MM NC EUPHORA 6MM over a WIRE, ASAHI GRANDSLAM 300CM 300CM in the LAD Mid was 10:49:11 inflated using a 30 JULISA INDEFLATOR at 12 julisa for 25 sec. A BALLOON, 2.0 X 6MM NC EUPHORA 6MM over a WIRE, ASAHI GRANDSLAM 300CM 300CM in the LAD Mid was 10:50:23 inflated using a 30 JULISA INDEFLATOR at 12 julisa for 15 sec. 10:51:14 Balloon Removed. 10:51:17 HR=66 bpm, NFMJ=838/80 mmhg, SpO2=95.0 %, Resp=12 B/min, Pain=0, Sydney=10, Wheeler=2 A STENT, 2.0 12MM HARRY 2.0 X 12MM was advanced through a MEGAN GUIDE CATHETER FR 6 over a WIRE, A MARILYN 10:54:04 GRANDSLAM 300CM 300CM. 10:56:20 HR=65 bpm, YXXI=796/74 mmhg, SpO2=97.0 %, Resp=9 B/min, Pain=0, Sydney=10, Wheeler=2 10:57:55 Stent not deployed. Stent removed and intact. 11:01:19 HR=68 bpm, ICWR=238/70 mmhg, SpO2=97.0 %, Resp=15 B/min, Pain=0, Sydney=10, Wheeler=2 A BALLOON, 1.25 X 6MM SPRINTER LEGEND OTW 6MM was inserted over WIRE, ASAHI GRANDSLAM 300CM 300 CM via 11:01:28 the Radial (left). A BALLOON, 1.25 X 6MM SPRINTER LEGEND OTW 6MM over a WIRE, ASAHI GRANDSLAM 300CM 300CM in the L AD Mid 11:01:33 was inflated using a 30 JULISA INDEFLATOR at 12 julisa for 10 sec. 11:05:08 200 mcg NTG (IC) given in lab by Marek Wilson via Intra-coronary. 11:05:25 The previous wire was exchanged for a WIRE, BALANCE MIDDLEWEIGHT 300CM 300CM. 11:05:33 Balloon Removed. 11:06:20 HR=67 bpm, ENBV=226/81 mmhg, SpO2=97.0 %, Resp=16 B/min, Pain=0, Sydney=10, Wheeler=2 11:07:10 Activated Clotting Time Drawn 11:08:56 The previous wire was exchanged for a WIRE, ASAHI GRANDSLAM 300CM 300CM. 11:11:17 HR=65 bpm, SLZJ=609/67 mmhg, SpO2=96.0 %, Resp=11 B/min 11:13:41 The previous wire was exchanged for a WIRE, RUNTHROUGH NS FLOPPY .014 300CM 300CM. 11:14:12 ACT (Normal Range 90-180) = 356 11:16:18 HR=64 bpm, LYRP=474/76 mmhg, SpO2=99 %, Resp=17 B/min, Pain=0, Sydney=10, Wheeler=2 11:18:02 Interventional wire has crossed the lesion A BALLOON, 2.0 X 6MM NC EUPHORA 6MM was inserted over WIRE, RUNTHROUGH NS FLOPPY .014 300CM 300 CM via 11:18:58 the Radial (left). A BALLOON, 2.0 X 6MM NC EUPHORA 6MM over a WIRE, RUNTHROUGH NS FLOPPY .014 300CM 300CM in the L AD 11:20:49 Mid was inflated using a 30 JULISA INDEFLATOR at 14 julisa for 14 sec. 11:21:23 HR=65 bpm, JSAY=702/69 mmhg, SpO2=97.0 %, Resp=12 B/min, Pain=0, Sydney=10, Wheeler=2 A BALLOON, 2.0 X 6MM NC EUPHORA 6MM over a WIRE, RUNTHROUGH NS FLOPPY .014 300CM 300CM in the L AD 11:21:50 Mid was inflated using a 30 JULISA INDEFLATOR at 14 julisa for 14 sec. A BALLOON, 2.0 X 6MM NC EUPHORA 6MM over a WIRE, RUNTHROUGH NS FLOPPY .014 300CM 300CM in the L AD 11:22:36 Mid was inflated using a 30 JULISA INDEFLATOR at 14 julisa for 20 sec. A BALLOON, 2.0 X 6MM NC EUPHORA 6MM over a WIRE, RUNTHROUGH NS FLOPPY .014 300CM 300CM in the L AD 11:22:38 Mid was inflated using a 30 JULISA INDEFLATOR at 14 julisa for 14 sec. 11:24:56 Balloon Removed. A BALLOON, 3.0 X 27MM NC EUPHORA 27MM was inserted over WIRE, RUNTHROUGH NS FLOPPY .014 300CM 3 00CM 11::30 via the Radial (left). 11::57 HR=66 bpm, DWAQ=871/75 mmhg, SpO2=97.0 %, Resp=12 B/min, Pain=0, Sydney=10, Wheeler=2 A BALLOON, 3.0 X 27MM NC EUPHORA 27MM over a WIRE, RUNTHROUGH NS FLOPPY .014 300CM 300CM in the 11::07 MEYERS-LAD was inflated using a 30 JULISA INDEFLATOR at 18 julisa for 14 sec. A BALLOON, 3.0 X 27MM NC EUPHORA 27MM over a WIRE, RUNTHROUGH NS FLOPPY .014 300CM 300CM in the 11::46 MEYERS-LAD was inflated using a 30 JULISA INDEFLATOR at 18 julisa for 18 sec. A BALLOON, 3.0 X 27MM NC EUPHORA 27MM over a WIRE, RUNTHROUGH NS FLOPPY .014 300CM 300CM in the 11:28:22 MEYERS-LAD was inflated using a 30 JULISA INDEFLATOR at 18 julisa for 18 sec. A BALLOON, 3.0 X 27MM NC EUPHORA 27MM over a WIRE, RUNTHROUGH NS FLOPPY .014 300CM 300CM in the 11:28:34 MEYERS-LAD was inflated using a 30 JULISA INDEFLATOR at 20 julisa for 12 sec. A BALLOON, 3.0 X 27MM NC EUPHORA 27MM over a WIRE, RUNTHROUGH NS FLOPPY .014 300CM 300CM in the 11::53 MEYERS-LAD was inflated using a 30 JULISA INDEFLATOR at 20 julisa for 10 sec. :30:03 Balloon Removed. A BALLOON, 3.5 X 15MM NC EUPHORA 15MM was inserted over WIRE, RUNTHROUGH NS FLOPPY .014 300CM 3 00CM 11:30:04 via the Radial (left). A BALLOON, 3.5 X 15MM NC EUPHORA 15MM over a WIRE, RUNTHROUGH NS FLOPPY .014 300CM 300CM in the 11::36 MEYERS-LAD was inflated using a 30 JULISA INDEFLATOR at 14 julisa for 10 sec. 11:31:52 HR=67 bpm, DSMV=504/73 mmhg, SpO2=97.0 %, Resp=12 B/min, Pain=0, Sydney=10, Wheeler=2 A BALLOON, 3.5 X 15MM NC EUPHORA 15MM over a WIRE, RUNTHROUGH NS FLOPPY .014 300CM 300CM in the 11:32:01 MEYERS-LAD was inflated using a 30 JULISA INDEFLATOR at 18 julisa for 10 sec. A BALLOON, 3.5 X 15MM NC EUPHORA 15MM over a WIRE, RUNTHROUGH NS FLOPPY .014 300CM 300CM in the 11:32:39 MEYERS-LAD was inflated using a 30 JULISA INDEFLATOR at 18 julisa for 10 sec. :33:21 Balloon Removed. :34:21 200 mcg NTG (IC) given in lab by Marek Wilson via Intra-coronary. 11:37:03 HR=67 bpm, GRGW=257/61 mmhg, SpO2=97.0 %, Resp=12 B/min, Pain=0, Sydney=10, Wheeler=2 A BALLOON, 4.0 X 12MM NC EUPHORA 12MM was inserted over WIRE, RUNTHROUGH NS FLOPPY .014 300CM 3 00CM 11:40:11 via the Radial (left). A BALLOON, 4.0 X 12MM NC EUPHORA 12MM over a WIRE, RUNTHROUGH NS FLOPPY .014 300CM 300CM in the 11:40:29 MEYERS-LAD was inflated using a 30 JULISA INDEFLATOR at 12 julisa for 15 sec. A BALLOON, 4.0 X 12MM NC EUPHORA 12MM over a WIRE, RUNTHROUGH NS FLOPPY .014 300CM 300CM in the 11:41:00 MEYERS-LAD was inflated using a 30 JULISA INDEFLATOR at 12 julisa for 15 sec. A BALLOON, 4.0 X 12MM NC EUPHORA 12MM over a WIRE, RUNTHROUGH NS FLOPPY .014 300CM 300CM in the 11:41:21 MEYERS-LAD was inflated using a 30 JULISA INDEFLATOR at 12 julisa for 15 sec. A BALLOON, 4.0 X 12MM NC EUPHORA 12MM over a WIRE, RUNTHROUGH NS FLOPPY .014 300CM 300CM in the 11:41:54 MEYERS-LAD was inflated using a 30 JULISA INDEFLATOR at 16 julisa for 12 sec. 11:41:56 HR=64 bpm, AOZV=222/72 mmhg, SpO2=96.0 %, Resp=13 B/min, Pain=0, Sydney=10, Wheeler=2 A BALLOON, 4.0 X 12MM NC EUPHORA 12MM over a WIRE, RUNTHROUGH NS FLOPPY .014 300CM 300CM in the 11:42:15 MEYERS-LAD was inflated using a 30 JULISA INDEFLATOR at 16 julisa for 15 sec. A BALLOON, 4.0 X 12MM NC EUPHORA 12MM over a WIRE, RUNTHROUGH NS FLOPPY .014 300CM 300CM in the 11:42:49 MEYERS-LAD was inflated using a 30 JULISA INDEFLATOR at 14 julisa for 25 sec. 11:44:24 Guide liner and Wire removed 11:46:16 Catheter was removed 11:46:21 Case End 11:46:53 180 mg BRILLINTA given in lab by Cherry Rutledge, JORGITO in Per mouth via Oral. Ordered by Marek Espinoza 11:47:03 HR=65 bpm, RNVA=771/69 mmhg, SpO2=98.0 %, Resp=10 B/min, Pain=0, Sydney=10, Wheeler=2 Assessment: Final Case, HR=68 BPM, Rhythm=Sinus, Chest Pain=0, Edema=None, Color=Normal, Skin = Warm, Dry Right Pulses: Tae Ped=1, Femoral=1, Radial=2 11:50:20 Neurological: State=Alert, Ox3, GUTIREREZ Respiration: Resp=8 B/min, SpO2=99 %, O2=0 lpm Radial Compression Device Used. 15 mLs of air placed in BAND, RADIAL COMPRESSION TR LARGE 29 2 9CM. Affected 11:51:12 hand 98 % O2 saturation. 11:51:23 HR=68 bpm, EJGC=706/76 mmhg, SpO2=98.0 %, Resp=32 B/min, Pain=0, Sydney=10, Wheeler=2 11:51:38 Cine recording checked. 11:54:18 Bedside Report will be given. 11:54:49 A Left Heart Cath was performed. 11:55:56 Vitals capture stopped. End Study - Contrast Media Used In Study Contrast Total Opened (mL) Total Used (mL) Total Wasted (mL) Omnipaque 300 230 70 End Study - Maximum Contrast Load Max Contrast Load (mL) 403.1 End Study - Radiation Exposure Fluoro Time (minutes) 48.5 End Study - Patient Disposition Complications Transferred To Interventional Outcome No Critical Care Bed successful
[2017-06-04] MEDS ORDERED: ACETAMINOPHEN 325 MG TAB PO PRN (12:15)
[2017-06-04] MEDS ORDERED: oxyCODONE/ACETAMINOPHEN 10 MG/325 MG TAB PO PRN (12:15)
[2017-06-04] MEDS ORDERED: ONDANSETRON HCL 4 MG/2 ML VIAL IVP PRN (12:15)
[2017-06-04] MEDS ORDERED: MORPHINE SULFATE 4 MG/ML INJ IV PUSH PRN (12:15)
[2017-06-04] MEDS ORDERED: MISC INFORMATION XX ONE (12:15)
[2017-06-04] MEDS ORDERED: oxyCODONE/ACETAMINOPHEN 5 MG/325 MG TAB PO PRN (12:15)
[2017-06-04] MEDS: CYCLOBENZAPRINE HCL 10 MG TAB PO SCH ×2 (13:46→18:16)
--- NOTE | 2017-06-04 18:51 | EKG ---
Date Performed: 06/04/2017 Time Performed: 07:12:42 PTAGE: 67 years EKG: Sinus rhythm Since the previous tracing, no significant change noted Normal ECG PREVIOUS TRACING : 05/28/2017 07.40 DOCTOR: Shayne Torres Interpretating Date/Time 06/04/2017 18:46:55
[2017-06-04] MEDS ORDERED: METOPROLOL TARTRATE 25 MG TAB PO SCH (21:00)
[2017-06-04] MEDS ORDERED: INSULIN DETEMIR 100 UNITS/ML VIAL SQ SCH (21:00)
[2017-06-04] MEDS: TICAGRELOR 90 MG TAB PO SCH (21:15)
--- NOTE | 2017-06-04 23:47 | MA ---
cc: Marek Wislon DO DATE: 06/04/2017 PROCEDURE: Coronary angiogram, bypass angiogram, moderate sedation 160 minutes, complex case, drug-eluting stent x 6 to left internal mammary artery to left anterior descending secondary to dissection, ultrasound guided access. PREPROCEDURE DIAGNOSES: Abnormal stress test, preoperative cardiovascular examination, known left anterior descending disease. POSTPROCEDURE DIAGNOSES: Coronary artery disease, left internal mammary artery to left anterior descending with operational dissection, status post 6 drug-eluting stents, residual left anterior descending disease after the anastomosis of the left internal mammary artery. MEDICATIONS: Fentanyl 125 mcg, Versed 1 mg, heparin 13,800 unit, verapamil 2.5 mg, nitroglycerin 600 mcg, Brilinta 180 mg. CONTRAST USED: 230 mL FLUOROSCOPY: 48.5 minutes. MODERATE SEDATION: 160 minutes. FRAILTY SCORE: 3. ESTIMATED BLOOD LOSS: 70 mL PROCEDURAL SUMMARY: Lawrence Sandoval is a pleasant 67-year-old male who sees my partner, Dr. Torres in the office and was undergoing cardiovascular exam for preoperative bariatric surgery. He had an abnormal stress test and during this, he was recommended cardiac catheterization. He had a diagnostic cardiac catheterization which showed significant disease in his LAD distal to the anastomosis of his MEYERS. Because this is a significant vessel, it is felt that this needed to be intervened on before he had surgery. He was brought back for staged intervention of the LAD. Risks, benefits and alternatives were explained to him and he consented to such. He was brought to the lab, prepped in the usual sterile fashion. The left radial artery was accessed using modified Seldinger technique and ultrasound guidance and placement of a 5/6 [place] sheath. An IM guide was advanced and engaged into the MEYERS to the LAD. A long BMW wire was advanced into the distal LAD through the MEYERS. Heparin was given as an anticoagulant. A compliant balloon (2.0 x 6), was advanced into the distal portion of the LAD and felt to be across the lesion and so this was inflated over the lesion. I attempted to place an Dawson drug-eluting stent (2 x 12), but was unable to advance it past the tortuosity within the MEEYRS and then into the distal LAD. Then, a compliant balloon (1.25 x 6) over the wire, balloon was advanced with the plan to exchange wires, but was unable to advance the balloon. At this time, an angiogram was done and no flow was noted coming down the MEYERS to LAD and so angiogram from up above shows spiral dissection throughout the MEYERS to LAD from the proximal to the mid distal portion of the MEYERS. Patient has no interventional option from the [place] LAD and so I felt that this needed to be stented. An Dawson drug-eluting stent (3.5 x 26) was placed over the ostial to proximal portion of the MEYERS and inflated. Next an Temple drug-eluting stent (3 x 26) was placed just distal to this. Then, I felt that the distal portion of the dissection needed to be tacked down and so an Temple drug-eluting stent (3 x 38) was placed over the distal portion of the dissection and inflated. Then an Dawson drug-eluting stent (3 x 38) was placed just proximal to this and inflated. As there was more than 38 mm left between the proximal and distal stents, an Temple drug-eluting stent (3 x 26) was placed overlapped with the distal stents and finally an Dawson drug-eluting stent (3 x 26) was placed between the proximal and distal stents to stent from the ostial portion to the mid distal portion of the MEYERS. At this time, I felt that the dissection was totally covered and so I placed a GuideLiner down the MEYERS an attempted to advance the Dawson drug-eluting stent (2 x 12) but was unable through the tortuosity of the MEYERS. So then a noncompliant balloon (3 x 27) was used with multiple inflations throughout the mid to distal stented portion of the MEYERS. I once again tried to place the Dawson drug-eluting stent distally but was not able to. At this time, a noncompliant balloon (2 x 6) was attempted to advance, but was unable to advance across the lesion. Then, I tried an over the wire balloon once again, but was unable to get pass the lesion and then the wire ended up pulling back across the lesion and so I decided to try another wire, which was a Runthrough floppy which advanced past the lesion. I tried to get the noncompliant balloon once again across the lesion, but was unable to. At this time, I felt that the patient was hemodynamically stable without chest pain and so the balloon was removed. The noncompliant balloon (3 x 27) was then used on multiple inflations throughout the proximal and mid portion of the stented MEYERS. This was exchanged out for a noncompliant balloon (3.5 x 15), which was used for the proximal portion of the stented MEYERS. The angiogram shows stents not fully opposed at the ostial portion and so a noncompliant balloon (4 x 12) was used in the proximal and ostial portions of the stent. Final angiogram shows well opposed stents throughout the MEYERS to LAD with good flow throughout the MEYERS to LAD with residual LAD disease as before. The wire was removed. The patient was given 180 mg of Brilinta. He will be transferred to the CVICU for observation overnight. 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 IMPRESSIONS: 1. Coronary artery disease with residual left anterior descending disease. 2. Dissection of the left internal mammary artery, status post 6 Dawson drug-eluting stents as above. RECOMMENDATIONS: 1. Mr. Sandoval underwent attempted PCI of his LAD distal to the anastomosis of the MEYERS, which was unsuccessful. 2. During this he had dissection of his MEYERS and this was treated with 6 drug-eluting stents. 3. He will be placed on aspirin and Brilinta therapy. 4. He will be watched in the CVICU overnight. 5. He will be treated with IV fluids as he received 230 mL of contrast. 6. He will be evaluated in the morning and if stable, discharged home. 7. Further recommendations will be made based on the hospital course. Thank you for allowing me to see Lawrence Sandoval. If any questions please do not hesitate to call. Marek Wilson DO VGP/rt , 11:08 PM , 11:46 PM
[2017-06-05 03:00] VITALS: PULSE 71; PULSE 78
[2017-06-05 03:29] VITALS: BP 115/60; PULSE 67; RESP 18; TEMP 97.9; O2SAT 98
[2017-06-05 05:26] LABS: AUTOMATED NEUTROPHIL # 5.6 TH/MM3 (1.8-7.7); BASOPHIL # 0.1 TH/MM3 (0-0.2); BASOPHIL % 1.2 % (0.0-2.0); EOSINOPHIL # 0.2 TH/MM3 (0-0.4); EOSINOPHIL % 2.8 % (0.0-4.0); HEMATOCRIT 40.3 % (39.0-51.0); HEMOGLOBIN 13.5 GM/DL (13.0-17.0); LYMPH % 12.6 % (9.0-44.0); LYMPHOCYTE # 0.9 TH/MM3 (1.0-4.8); MEAN CELL VOLUME 88.6 FL (80.0-100.0); MEAN CORPUSCULAR HEMOGLOBIN 29.7 PG (27.0-34.0); MEAN CORPUSCULAR HGB CONC 33.5 % (32.0-36.0); MEAN PLATELET VOLUME 9.3 FL (7.0-11.0); MONOCYTE # 0.7 TH/MM3 (0-0.9); NEUT % 74.4 % (16.0-70.0); PLATELET COUNT 143 TH/MM3 (150-450); RED BLOOD COUNT 4.55 MIL/MM3 (4.50-5.90); RED CELL DISTRIBUTION WIDTH 15.4 % (11.6-17.2); WHITE BLOOD COUNT 7.5 TH/MM3 (4.0-11.0)
[2017-06-05 05:53] LABS: BICARBONATE 23.4 MEQ/L (21.0-32.0); CALCIUM 8.3 MG/DL (8.5-10.1); CREATININE 1.5 MG/DL (0.60-1.30)
[2017-06-05 07:00] VITALS: BP 125/78; PULSE 77; RESP 18; TEMP 98.3; O2SAT 97
[2017-06-05] MEDS: SODIUM CHLOR 0.9% 1000 ML INJ 1,000 ML IV SCH (07:00)
[2017-06-05] MEDS ORDERED: ATORVASTATIN 40 MG TAB PO SCH (09:00)
[2017-06-05] MEDS ORDERED: ALFUZOSIN 10 MG PO SCH (09:00)
[2017-06-05] MEDS ORDERED: ASPIRIN EC 81 MG TABEC PO SCH (09:00)
[2017-06-05] MEDS ORDERED: PIOGLITAZONE HCL 30 MG TAB PO SCH (09:00)
[2017-06-05] MEDS: CYCLOBENZAPRINE HCL 10 MG TAB PO SCH ×2 (09:34→13:00)
[2017-06-05] MEDS: TICAGRELOR 90 MG TAB PO SCH (09:35)
[2017-06-05 11:00] VITALS: BP 131/69; PULSE 79; RESP 20; TEMP 98.6; O2SAT 98
--- NOTE | 2017-06-05 13:19 | PD.CARD.PN ---
Subjective Subjective Remarks No problems overnight, feels well Objective Medications Current Medications Medications (Trade) Dose Ordered Sig/Mynor Route Start Time Stop Time Status Last Admin Sodium Chloride 1,000 ml @ 30 mls/hr Q24H IV 06/04/17 07:00 06/04/17 09:00 (Ecotrin Ec) 81 mg DAILY PO 06/05/17 09:00 06/05/17 09:34 (Lipitor) 40 mg DAILY PO 06/05/17 09:00 06/05/17 09:35 (Flexeril) 10 mg TID PO 06/04/17 13:00 06/05/17 09:34 (Levemir Inj) 30 units HS SQ 06/04/17 21:00 06/04/17 21:15 (Lopressor) 12.5 mg HS PO 06/04/17 21:00 06/04/17 21:14 (Actos) 30 mg DAILY PO 06/05/17 09:00 06/05/17 09:35 (Januvia) 100 mg DAILY PO 06/05/17 09:00 06/05/17 09:35 Patient Own Medication PT OWN MED: (Alfuzo... DAILY PO 06/05/17 09:00 Future Hold (Tylenol) 325 mg Q4H PRN PO 06/04/17 12:15 06/05/17 09:34 (Percocet 5-325 Mg) 1 tab Q4H PRN PO 06/04/17 12:15 (Percocet 10-325 Mg) 1 tab Q4H PRN PO 06/04/17 12:15 (Morphine Inj) 2 mg Q30M PRN IV PUSH 06/04/17 12:15 (Zofran Inj) 4 mg Q6H PRN IVP 06/04/17 12:15 (Brilinta) 90 mg BID PO 06/04/17 21:00 06/05/17 09:35 Vital Signs / I&O Vital Signs Date Time Temp Pulse Resp B/P (MAP) Pulse Ox O2 Delivery O2 Flow Rate FiO2 06/05/17 11:00 98.6 79 20 131/69 (89) 98 06/05/17 11:00 79 06/05/17 07:00 77 06/05/17 07:00 98.3 77 18 125/78 (94) 97 06/05/17 03:29 97.9 67 18 115/60 (78) 98 06/05/17 03:00 78 06/05/17 03:00 71 06/04/17 23:23 98.3 73 20 103/60 (74) 98 06/04/17 23:00 76 06/04/17 19:30 97.8 94 20 144/62 (89) 97 06/04/17 19:00 91 06/04/17 15:00 81 06/04/17 15:00 97.9 81 16 132/54 (80) 95 I/O 06/04/17 06/04/17 06/04/17 06/05/17 06/05/17 06/05/17 07:00 15:00 23:00 07:00 15:00 23:00 Intake Total 1321 ml 1480 ml Output Total 1025 ml 1300 ml Balance 296 ml 180 ml Intake Oral 720 ml 420 ml IV Total 601 ml 1060 ml Output Urine Total 1025 ml 1300 ml # Bowel Movements 3 Physical Exam GENERAL: NAD, AAOx3 SKIN: Warm and dry. HEAD: Atraumatic. Normocephalic. EYES: Pupils equal and round. No scleral icterus. No injection or drainage. ENT: No nasal bleeding or discharge. Mucous membranes pink and moist. NECK: Trachea midline. No JVD. CARDIOVASCULAR: Regular rate and rhythm. RESPIRATORY: No accessory muscle use. Clear to auscultation. Breath sounds equal bilaterally. GASTROINTESTINAL: Abdomen soft, non-tender, nondistended. Hepatic and splenic margins not palpable. MUSCULOSKELETAL: Extremities without clubbing, cyanosis, or edema. No obvious deformities. Left radial no hematoma NEUROLOGICAL: Awake and alert. No obvious cranial nerve deficits. Motor grossly within normal limits. Five out of 5 muscle strength in the arms and legs. Normal speech. PSYCHIATRIC: Appropriate mood and affect; insight and judgment normal. Laboratory Laboratory Tests Test 06/05/17 04:08 White Blood Count 7.5 TH/MM3 Red Blood Count 4.55 MIL/MM3 Hemoglobin 13.5 GM/DL Hematocrit 40.3 % Mean Corpuscular Volume 88.6 FL Mean Corpuscular Hemoglobin 29.7 PG Mean Corpuscular Hemoglobin Concent 33.5 % Red Cell Distribution Width 15.4 % Platelet Count 143 TH/MM3 Mean Platelet Volume 9.3 FL Neutrophils (%) (Auto) 74.4 % Lymphocytes (%) (Auto) 12.6 % Monocytes (%) (Auto) 9.0 % Eosinophils (%) (Auto) 2.8 % Basophils (%) (Auto) 1.2 % Neutrophils # (Auto) 5.6 TH/MM3 Lymphocytes # (Auto) 0.9 TH/MM3 Monocytes # (Auto) 0.7 TH/MM3 Eosinophils # (Auto) 0.2 TH/MM3 Basophils # (Auto) 0.1 TH/MM3 CBC Comment DIFF FINAL Differential Comment Blood Urea Nitrogen 21 MG/DL Creatinine 1.50 MG/DL Random Glucose 117 MG/DL Calcium Level 8.3 MG/DL Sodium Level 139 MEQ/L Potassium Level 4.0 MEQ/L Chloride Level 107 MEQ/L Carbon Dioxide Level 23.4 MEQ/L Anion Gap 9 MEQ/L Estimat Glomerular Filtration Rate 46 ML/MIN Assessment and Plan Problem List: (1) CAD (coronary artery disease) ICD Codes: I25.10 - Atherosclerotic heart disease of [place] coronary artery without angina pectoris Assessment and Plan 1) CAD s/p attempted PCI of LAD through MEYERS MEYERS with dissection s/p DESx6 2) ASA/Brilinta/BB/Statin 3) CKD 3 Will hold off on JANIS-I therapy 4) Cardiovascularly stable for discharge Marek Wilson DO Jun 05, 2017 13:19
[2017-06-05] MEDS ORDERED: BRIL90TA PO (13:21)
== END 2017-06-05 14:05 | disposition home or self-care (01) ==
LOC: HDOC 06:33 → HDIC 06:33 → HCVI 12:29 → HDOC 06-05 14:05
PROVIDERS: ATTEND Nuclear Medicine Nuclear Cardiology
DX: I25.10 Atherosclerotic heart disease of native coronary artery without angina pectoris (principal); I25.42 Coronary artery dissection; I25.2 Old myocardial infarction; I71.4 Abdominal aortic aneurysm, without rupture; N18.3 Chronic kidney disease, stage 3 (moderate); I13.10 Hypertensive heart and chronic kidney disease without heart failure, with stage 1 through stage 4 chronic kidney disease, or unspecified chronic kidney disease; E11.22 Type 2 diabetes mellitus with diabetic chronic kidney disease; E78.5 Hyperlipidemia, unspecified; Z95.1 Presence of aortocoronary bypass graft; K21.9 Gastro-esophageal reflux disease without esophagitis; E66.9 Obesity, unspecified; Z68.41 Body mass index [BMI] 40.0-44.9, adult; Z79.4 Long term (current) use of insulin; R06.00 Dyspnea, unspecified; G47.30 Sleep apnea, unspecified
CPT/HCPCS: 80048; 82948; 85002; 85025; 85610; 85730; 92928; 93005; 93454; 99152; 99153; C1725; C1769; C1874; C1887; C1893; J1644; J2250; J3010; J7030; Q9967